=== PATIENT | male | born 1975 | race Caucasian/White ===

== ENCOUNTER 2019-04-29 17:11 | Emergency (ER) | payer MEDICAID ==
[~2019-04-29] VITALS: Ht 180.3 cm; Wt 106.0 kg
[~2019-04-29 17:11] MED LIST: CLIN300C10 PO; IBUP-1542 PO
[2019-04-29 17:14] VITALS: Ht 180.3 cm; Wt 106.0 kg
--- NOTE | 2019-04-29 17:56 | ERD ---
ER Documentation Chief Complaint Chief Complaint INDEX FINGER ON LEFT HAND SWOLLEN WITH SMALL WOUND HPI 43-year-old male with no reported past medical surgical history presents with complaint of left index finger swelling. [place] from [place] into the finger. Thinks he partially remove the. Since that time is had some swelling to the area with pain. He otherwise denies numbness or paresthesias of the affected limb. He otherwise without complaint. Reports all vaccinations up-to-date no allergies to medications. ROS All systems reviewed and are negative except as per history of present illness. Medications Home Meds Active Scripts Clindamycin Hcl* (Clindamycin Hcl*) 300 Mg Capsule, 300 MG PO QID for 7 Days, CA P Prov:JEUDINEONEIL PA-C 04/29/19 Ibuprofen* (Motrin*) 600 Mg Tab, 600 MG PO Q6, #30 TAB Prov:ONEIL KAISER PA-C 04/29/19 FmHx Family History: No diabetes, No coronary disease, No other Physical Exam Vitals Vital Signs Date Temp Pulse Resp B/P (MAP) Pulse Ox O2 O2 Flow FiO2 Time Delivery Rate 04/29/19 98.7 70 16 169/98 99 Room Air 19:21 (121) 04/29/19 99.5 73 18 173/97 99 17:14 (122) Physical Exam Const: No acute distress Head: Atraumatic Eyes: Normal Conjunctiva ENT: Normal External Ears, Nose and Mouth. Neck: Full range of motion. No meningismus. Resp: Clear to auscultation bilaterally Cardio: Regular rate and rhythm, no murmurs Abd: Soft, non tender, non distended. Normal bowel sounds Skin: No petechiae or rashes Back: No midline or flank tenderness Ext: Left hand index finger with some swelling, mild erythema to dorsal surface, no open wound or laceration, patient moves all fingers without issue, SI LT throughout, 5 out of 5 strength to affected left hand Neur: Awake and alert Psych: Normal Mood and Affect Procedures/MDM 43-year-old male who comes in with complaint of left index finger pain, concern for foreign body retained in finger. X-ray of affected finger without finding of radiopaque foreign body. None palpated on exam. Patient has mild erythema to area so we will treat cover with antibiotics. Strict return precautions explained in detail to patient in case symptoms do not improve and he needs further work-up or exploration of finger. Patient agrees with plan and all questions answered. DISPOSITION PLAN: We discussed follow up with the patient's primary care doctor within 24 to 48 hours. Patient counseled regarding my diagnostic impression and care plan. Prior to discharge all questions answered. Pt agrees with treatment plan and understands strict return precautions. Precautionary instructions provided including instructions to return to the ER if not improving or for any worsening or changing symptoms or concerns. Disclaimer: Inadvertent spelling and grammatical errors are likely due to EHR/dictation software use and do not reflect on the overall quality of patient care. Also, please note that the electronic time recorded on this note does not necessarily reflect the actual time of the patient encounter. Departure Diagnosis: Primary Impression: Finger injury Condition: Stable Additional Instructions: Call your primary care doctor TOMORROW for an appointment during the next 2-3 days.See the doctor sooner or return here if your condition worsens before your appointment time. ONEIL KAISER PA-C Apr 29, 2019 17:56
[2019-04-29 19:21] VITALS: BP 169/98; PULSE 70; RESP 16
== END 2019-04-29 19:22 | disposition home or self-care (01) ==
LOC: FTE 17:11
DX: S69.92XA Unspecified injury of left wrist, hand and finger(s), initial encounter (principal); X58.XXXA Exposure to other specified factors, initial encounter; Y92.9 Unspecified place or not applicable
CPT/HCPCS: 73140; Z7502